=== PATIENT | male | born 1985 | race African-American/Black ===

== ENCOUNTER 2021-03-04 17:00 | Emergency (ER) | payer OTHER ==
[~2021-03-04] VITALS: Ht 177.8 cm; Wt 72.6 kg
--- NOTE | ~2021-03-04 | EMS ---
[place] [id number] EMS Patient Care Report Name: CHAD RUCKER Room #: DEP EVERETT Centeno#: [id number] Admission: 03/04/21 Attend Phys: Discharge: 03/04/21 Date of : 81 Report #: [id number] THIS REPORT FOR: //name// Report Transmitted: 03/04/2021 19:02 EMS Care Summary [place], [place]/[facility] Incident [id number] @ 03/04/2021 16:27 Incident Location [facility] [address] [place] [address] Patient CHAD RUCKER Male, 36 Years 1985 Patient Address [address] [place] [address] Patient History Behavioral/Psychiatric Disorder,Hypertension (HTN), Patient Medications Lisinopril, Atorvastatin, Chief Complaint alt loc Disposition Transported No Lights/[place] Dispatch Reason Overdose/Poisoning/Ingestion Transported To [facility] Narrative ems met [facility] on scene. bystanders on scene. pt found supine on sidewalk and presented as if asleep. bystanders stated pt has been down for 10 plus minutes. bystanders stated pt reported he smoked some marijuana that he believes was "laced". pt only responded to painful stimuli sternal rub. pt opened his eyes and stated "whats up?". pt then closed his eyes again and guarded his eyes if eyes attempted to manually open them to inspect pupils. pt is breathing [address] [place] [address] EMS Patient Care Report Name: ALKACHAD Room #: DEP EVERETT Brown.#: [id number] Admission: 03/04/21 Attend Phys: Discharge: 03/04/21 Date of : 81 Report #: [id number] adequately. emt performed arm drop test and pts hand contacted his face. bystanders were advised pt would be transported to [facility] as its the closest appropriate facility. pt was picked up [place] carry style and placed on ems cot. pt was secured in a semi fowlers position without incident. pt was loaded into ambulance. exam reveals nystagmus, motor disturbances, and changes in breathing. suspected pcp use. pts mother arrived on scene and stated she is unaware of any substance abuse. pts mother was advised that pt will be transported to [facility]. 3-lead ekg was applied revealing nsr. pt repeatedly removed pulse ox probe. npa insertion was attempted, pt awoke and eyes were wide open but remained non verbal. pt stared with a forward gaze wide eyed and nystagmus. npa was not fully inserted and was dc'd and was not reattempted. pt was transported non emergent. pt began clinching his hands repeatedly. pt then held his arms out to his side with hands open in a Surya like position. pt held this position til arrival of [facility]. rest of transport was uneventful. pt care was transferred to appropriate staff and ems goes back in service. Initial Vitals @16:49P: 75,CO: 11,SpO2: 100, @16:53P: 72,R: 20,BP: 131/95,GCS: 11,SpO2: 100,Revised Trauma: 11, @16:40P: 72,R: 20,BP: 148/94,Pain: 0/10,GCS: 12,Glucose: 149,SpO2: 100,Revised Trauma: 11, Assessments @16:34MENTAL:Other,SKIN:No Abnormalities,HEENT:Eyes: Left: Other,Eyes: Right: Other,Head/Face: No Abnormalities,Neck/Airway: No Abnormalities,LUNG SOUNDS:General: No Abnormalities,Left Upper: No Abnormalities,Right Upper: No Abnormalities,Left Lower: No Abnormalities,Right Lower: No Abnormalities,ABDOMEN:General: No Abnormalities,Left Upper: No Abnormalities,Right Upper: No Abnormalities,Left Lower: No Abnormalities,Right Lower: No Abnormalities,PELVIS//GI:No Abnormalities,EXTREMITIES:Left Arm: No Abnormalities,Right Arm: No Abnormalities,Left Leg: No Abnormalities,Right Leg: No Abnormalities,PULSE:NEURO:No Abnormalities,@16:53MENTAL:No Abnormalities,SKIN:No Abnormalities,HEENT:Head/Face: No Abnormalities,Eyes: No Abnormalities,Neck/Airway: No Abnormalities,LUNG SOUNDS:General: No Abnormalities,Left Upper: No Abnormalities,Right Upper: No Abnormalities,Left Lower: No Abnormalities,Right Lower: No Abnormalities,ABDOMEN:General: No Abnormalities,Left Upper: No Abnormalities,Right Upper: No Abnormalities,Left Lower: No Abnormalities,Right Lower: No Abnormalities,PELVIS//GI:No Abnormalities,EXTREMITIES:Left Arm: No Abnormalities,Right Arm: No Abnormalities,Left Leg: No Abnormalities,Right Leg: No Abnormalities,PULSE:NEURO:No Abnormalities, Impression Altered Mental Status Procedures [address] [address] EMS Patient Care Report Name: CHAD RUCKER Room #: KATHRYN Centeno#: [id number] Admission: 03/04/21 Attend Phys: Discharge: 03/04/21 Date of : 81 Report #: [id number] @16:34ALS AssessmentResponse: UnchangedSucceeded@16:42NPA Response: UnchangedFailed@16:433-Lead ECGResponse: UnchangedSucceeded Timeline 16:27,Call Received 16:27,Dispatch Notified 16:27,Dispatched 16:27,En Route 16:33,On Scene 16:34,At Patient 16:34,ALS Assessment,Response: UnchangedSucceeded, 16:40,BP: 148/94 M,PULSE: 72,RR: 20 R,SPO2: 100 Ox,ETCO2: ,B,PAIN: 0,GCS: 12, 16:42,NPA Response: UnchangedFailed, 16:43,3-Lead ECG,Response: UnchangedSucceeded, 16:44,Depart Scene 16:49,BP: / M,PULSE: 75,RR: R,SPO2: 100 Ox,ETCO2: ,BG: ,PAIN: ,GCS: , 16:53,BP: 131/95 M,PULSE: 72,RR: 20 R,SPO2: 100 Ox,ETCO2: ,BG: ,PAIN: ,GCS: 11, 16:55,At Destination 17:15,Call Closed Disclaimer v1.1 Copyright 2020 [employer] This EMS Care Summary contains data elements from the applicable legal record (which may be displayed differently). It is designed to provide pertinent information for the following purposes: continuity of care, clinical quality, and state data reporting. The complete legal record is available to ED staff and administrators of the receiving hospital in [employer]'s Patient Tracker. All data is provided "as is."
[2021-03-04 17:23] LABS: ABSOLUTE NEUTROPHILS 4.4 thou/uL (1.4-8.2); BASOPHILS 1.1 % (0.0-2.0); EOSINOPHILS 2.4 % (0.0-3.0); HEMOGLOBIN 14.6 gm/dL (14.0-18.0); LYMPHOCYTES 45.4 % (24.0-44.0); MCH 30.5 pg (26.0-34.0); MCHC 34.7 g/dL (28.0-37.0); MCV 87.9 fL (80.0-100.0); MONOCYTES 7.5 % (1.0-8.0); PLATELET COUNT 241 thou/uL (150-400); POLYS 43.6 % (36.0-66.0); RBC 4.78 mil/uL (4.50-6.00); RDW 13.9 % (10.5-14.5); WBC 10.1 thou/uL (4.0-11.0)
[2021-03-04 17:36] LABS: ANION GAP 18 mmol/L (7-16); BUN 16 mg/dL (7-18); CALCIUM 9.4 mg/dL (8.5-10.1); CHLORIDE 101 mmol/L (98-107); CO2 21 mmol/L (21-32); CREATININE 1.2 mg/dL (0.7-1.3); GLUCOSE 177 mg/dL (74-106); POTASSIUM 3.7 mmol/L (3.5-5.1); SODIUM 140 mmol/L (136-145)
[2021-03-04 17:41] LABS: AMP/METHAMP Negative (Negative); BARBITURATES Negative (Negative); BENZODIAZEPINES Negative (Negative); COCAINE Negative (Negative); METHADONE Negative (Negative); OPIATES Negative (Negative); PCP POSITIVE (Negative)
[2021-03-04 17:45] LABS: TROPONIN-I <0.06 ng/mL (<0.06)
[2021-03-04] MEDS ORDERED: LISINOPRIL-HCT1 EAC2 PO (17:54)
[2021-03-04] MEDS ORDERED: VENLAFAXINE HC150 MG PO (17:54)
[2021-03-04] MEDS ORDERED: LATUDA60 MG PO (17:55)
[2021-03-04] MEDS ORDERED: PROAIR HFA8.5 GM INH (17:55)
[2021-03-04] MEDS ORDERED: ATORVASTATIN CA80 MG PO (17:55)
[2021-03-04 19:35] VITALS: BP 143/85
--- NOTE | 2021-03-05 09:09 | EKG ---
[place] [address] [facility] [place] [address] ELECTROCARDIOGRAM REPORT Name: CHAD RUCKER Room #: DEP EVERETT Centeno#: [id number] Admission: 03/04/21 Attend Phys: Discharge: 03/04/21 Date of : 81 Report #: [id number] [facility] ED Test Date: 2021-03-04 Test Time: 17:29:17 Pat Name: CHAD RUCKER Department: Room: Gender: Hospital Coder: MPARChristie : 1985 Requested By: Sravan Gupta Order Number: [id number] MD: Tray Walker Measurements Intervals [place] Rate: 65 P: 40 LA: 119 QRS: 66 QRSD: 99 T: 43 QT: 471 QTc: 490 Interpretive Statements Sinus rhythm Borderline short LA interval Probable left ventricular hypertrophy Borderline prolonged QT interval No previous ECG available for comparison Electronically Signed On 03-05-2021 9:09:09 CDT by Tray Walker [email or web address] <ELECTRONICALLY SIGNED> By: Tray Walker MD, [facility] 03/05/21 0909 [id number] [id number] Tray Walker MD, FAC /EPI
== END 2021-03-04 19:47 | disposition home or self-care (01) ==
LOC: ER 17:00
PROVIDERS: Nurse Practitioner
DX: R41.82 Altered mental status, unspecified (principal); Z79.899 Other long term (current) drug therapy